=== PATIENT | female | born 1975 | race Caucasian/White ===

== ENCOUNTER 2022-10-24 08:33 | Outpatient (OUT) | payer OTHER, SELFPAY ==
--- NOTE | 2022-10-24 08:44 | MM_ITS ---
Patient: ROYA SAM Exam Date: 10/24/2022 : 1975 Gender:F Ordering : Leslie Simmons Admission #: [id number] Family : DR Rene Dominique . Order #: [id number] CLICK HERE TO VIEW EXAM RADIOLOGY REPORT PROCEDURE: MM TOMOSYNTHESIS SCREENING BI COMPARISON: MG MAMM SCREEN ROYAL W CAD, 05/06/2019. INDICATIONS: Screening Calculator Name NCI Breast Cancer Risk Assessment Tool 5 Year Breast Cancer Risk Not Reported. Lifetime Breast Cancer Risk Not Reported. Personal Breast Cancer No Personal Ovarian Cancer No Treatments None Family Cancers None LOCATION: [facility] BREAST COMPOSITION: Scattered areas fibroglandular density. FINDINGS: DIAGNOSTIC CATEGORY 1--NEGATIVE. RIGHT BREAST: No significant suspicious finding. No significant change has occurred. LEFT BREAST: No significant suspicious finding. No significant change has occurred. RECOMMENDATIONS: ROUTINE MAMMOGRAM AND CLINICAL EVALUATION IN 12 MONTHS. PLEASE NOTE: A NORMAL MAMMOGRAM DOES NOT EXCLUDE THE POSSIBILITY OF BREAST CANCER. A CLINICALLY SUSPICIOUS PALPABLE LUMP SHOULD BE BIOPSIED. Dictated by: Kennedy Damon M.D. on 10/25/2022 at 08:13 Approved by: Kennedy Damon M.D. on 10/25/2022 at 08:16
== END 2022-10-24 08:34 ==
PROVIDERS: PCP Nurse Practitioner; Visit Provider Nurse Practitioner
DX: Z12.31 Encounter for screening mammogram for malignant neoplasm of breast (principal)
CPT/HCPCS: 77063; 77067